=== PATIENT | female | born 1985 | race Caucasian/White ===

== ENCOUNTER → 2016-07-13 | Outpatient (CLI) | payer OTHER ==
--- NOTE | 2016-07-13 10:42 | EKG ---
[address] [place] [id number] Measurements Intervals [place] Rate: 59 P: 6 [place]: 158 QRS: -24 QRSD: 165 T: -14 QT: 429 QTc: 429 Interpretive Statements SINUS RHYTHM BORDERLINE LEFT AXIS DEVIATION [QRS AXIS < -20] RIGHT BUNDLE BRANCH BLOCK [120+ ms QRS DURATION, UPRIGHT V1, 40+ ms S IN I/aVL/V4/V5/V6] [email or web address]
== END ==
LOC: MOB LAB 10:24
PROVIDERS: ATTEND Family Medicine
DX: R94.31 Abnormal electrocardiogram [ECG] [EKG] (principal); I45.10 Unspecified right bundle-branch block; F31.9 Bipolar disorder, unspecified
CPT/HCPCS: 36415; 80178; 93005; 93010